=== PATIENT | female | born 1995 | race Two or more races ===

== ENCOUNTER 2025-01-31 13:33 | Emergency (ER) | payer OTHER ==
[~2025-01-31] VITALS: Ht 160 cm; Wt 70.8 kg
[2025-01-31] MEDS ORDERED: 0.9 % SODIUM CHLORIDE 1,000 ML IV STA (15:30)
[2025-01-31] MEDS ORDERED: FAMOtidine 10 MG/ML (4ML VIAL) IV STA (15:31)
[2025-01-31] MEDS ORDERED: FAMOTIDINE/PF 20 MG/2 ML VIAL ONE (15:45)
[2025-01-31] MEDS ORDERED: HYOSCYAMINE SULFATE 0.125 MG TAB.SUBL ONE (15:45)
[2025-01-31] MEDS ORDERED: HYOSCYAMINE SULFATE 0.125 MG TAB.SUBL SL ONE (15:45)
[2025-01-31 16:13] LABS: HEMATOCRIT 39.2 % (36.0-45.00); HEMOGLOBIN 12.9 g/dL (12.0-15.00); MEAN CELL VOLUME 86.8 fL (80.00-100.00); MEAN CORPUSCULAR HEMOGLOBIN 28.6 pg (27.00-32.0); MEAN CORPUSCULAR HGB CONC 32.9 g/dl (32.0-36.0); PLATELET COUNT 190 K/uL (150-450); RED BLOOD COUNT 4.51 M/uL (4.00-6.00); RED CELL DISTRIBUTION WIDTH 13.4 % (11.5-14.5)
[2025-01-31 16:36] LABS: CALCIUM 8.8 mg/dL (8.5-10.1); CREATININE SERUM 0.88 mg/dL (0.55-1.02); GFR 75.97; POTASSIUM 3.69 mEq/L (3.5-5.1)
[2025-01-31 16:49] LABS: COVID-19 AG NEGATIVE (NEGATIVE)
== END 2025-01-31 18:39 | disposition home or self-care (01) ==
LOC: ER 13:33
PROVIDERS: General Practice
DX: K52.89 Other specified noninfective gastroenteritis and colitis (principal); Z20.822 Contact with and (suspected) exposure to COVID-19